=== PATIENT | female | born 1995 | race Hispanic/Latino ===

== ENCOUNTER 2020-05-14 11:17 | Emergency (ER) | payer OTHER ==
[~2020-05-14] VITALS: Ht 157.5 cm; Wt 63.4 kg
[2020-05-14] MEDS ORDERED: NEXP1IMP SC (11:28)
[2020-05-14] MEDS ORDERED: LORazepam 1 MG TAB PO ONE (11:50)
[2020-05-14 12:12] LABS: BASO % 0.3 % (0.0-1.0); EOS # 0.6 10^3/uL (0.0-0.5); EOS % 8.3 % (0.0-3.0); HEMATOCRIT 39.3 % (36.0-47.0); HEMOGLOBIN 12.6 g/dl (12.0-15.5); LYMPH # 0.9 10^3/uL (1.5-5.0); LYMPH % 13.9 % (24.0-44.0); MEAN CORPUSCULAR HEMOGLOBIN 28.1 pg (27.0-33.0); MEAN CORPUSCULAR HGB CONC 32.1 g/dl (32.0-36.5); MEAN CORPUSCULAR VOLUME 87.5 fl (80.0-96.0); MONO # 0.5 10^3/uL (0.0-0.8); MONO % 7.4 % (2.0-8.0); NEUTROPHILS # 4.7 10^3/uL (1.5-8.5); NEUTROPHILS % 69.7 % (36.0-66.0); PLATELET COUNT, AUTOMATED 266 10^3/uL (150-450); RED BLOOD COUNT 4.49 10^6/uL (4.00-5.40); WHITE BLOOD COUNT 6.8 10^3/uL (4.0-10.0)
--- NOTE | 2020-05-14 12:30 | REP ---
INDICATION: central chest pain COMPARISON: None. TECHNIQUE: PA and lateral. FINDINGS: The mediastinum and cardiac silhouette are normal. The lung dewitt are clear and without acute consolidation, effusion, or pneumothorax. The skeletal structures are intact and normal. IMPRESSION: No acute cardiopulmonary process. No focal consolidation or effusion. <Electronically signed by Patricio Silva > 05/14/20 [id number]
[2020-05-14 12:41] LABS: BLOOD UREA NITROGEN 17 MG/DL (7-18); CALCIUM LEVEL 9.2 MG/DL (8.5-10.1); CARBON DIOXIDE LEVEL 25 MEQ/L (21-32); CHLORIDE LEVEL 110 MEQ/L (98-107); CK-MB VALUE MASS < 1.0 NG/ML (<3.6); CPK CREATINE PHOSPHOKINASE 58 U/L (26-192); CREATININE FOR GFR 0.52 MG/DL (0.55-1.30); GLOMERULAR FILTRATION RATE > 60.0 (>60); GLUCOSE, FASTING 104 MG/DL (70-100); MB/CK RELATIVE INDEX 1.72 (< OR =4); POTASSIUM SERUM 3.8 MEQ/L (3.5-5.1); SODIUM LEVEL 142 MEQ/L (136-145); TROPONIN I < 0.02 NG/ML (< 0.10)
[2020-05-14] MEDS ORDERED: NS 1,000 ML IV ONE (13:10)
[2020-05-14] MEDS ORDERED: ISOVUE-370 76% 100ML VIAL As Ordered ONE (13:17)
--- NOTE | 2020-05-14 13:41 | REP ---
INDICATION: chest pain, elevated d-dimer COMPARISON: None. TECHNIQUE: Axial contrast enhanced images from the thoracic inlet to the upper abdomen using pulmonary embolus technique with multiplanar re-formations. 75 ml Isovue 370 intravenous contrast material administered without complication. This CT examination was performed using the following dose reduction techniques: Automated exposure control, adjustment of mA and/or kv according to the patient's size, and use of iterative reconstruction technique. FINDINGS: Satisfactory enhancement of the pulmonary vasculature is achieved and no filling defects are identified to suggest pulmonary embolus. Further evaluation of the mediastinum demonstrates normal thoracic aorta, heart and pericardium. The bilateral lung dewitt are well aerated and clear without consolidation, pleural effusion or pneumothorax. Tracheobronchial tree is patent. No adenopathy noted. Surrounding musculoskeletal structures intact IMPRESSION: No evidence for pulmonary embolus. No acute mediastinal or pleural parenchymal process. <Electronically signed by Patricio Silva > 05/14/20 [id number]
[2020-05-14 14:14] VITALS: BP 134/88
--- NOTE | 2020-05-15 14:20 | ECGEPIP ---
[facility] - ED Test Date: 2020-05-14 Pat Name: JENN JENKINS Department: Room: - Gender: Female Dramatic Reader: NAOMY : 1995 Requested By: Dipak Lou Order Number: [id number] Reading MD: Celia Morel Measurements Intervals [place] Rate: 87 P: 27 MO: 118 QRS: 53 QRSD: 86 T: 18 QT: 366 QTc: 440 Interpretive Statements Sinus rhythm with premature atrial complexes NSTTW abnormalities No prior Electronically Signed on 05-15-2020 14:19:49 EST by Celia Morel
== END 2020-05-14 14:21 | disposition home or self-care (01) ==
LOC: M ED 11:17
DX: F41.0 Panic disorder [episodic paroxysmal anxiety] (principal); R51.9 Headache, unspecified; F10.10 Alcohol abuse, uncomplicated; F17.200 Nicotine dependence, unspecified, uncomplicated; Z79.3 Long term (current) use of hormonal contraceptives
CPT/HCPCS: 71046; 71275; 80048; 82550; 82553; 84484; 84702; 85025; 85379; 93005; 96360; 99284; Q9967; U0003

== ENCOUNTER → 2021-03-17 | Outpatient (CLI) | payer OTHER ==
[~2021-03-17] MED LIST: NEXP1IMP SC
== END ==
LOC: M LABSMTC 13:05
PROVIDERS: ATTEND Pediatrics
DX: Z20.822 Contact with and (suspected) exposure to COVID-19 (principal)
CPT/HCPCS: C9803; U0003